=== PATIENT | male | born 1995 | race Caucasian/White ===

== ENCOUNTER 2024-02-17 16:41 | Emergency (ER) | payer SELFPAY ==
[2024-02-17] MEDS ORDERED: Sodium Chloride 0.9% 10 ML Syringe FLUSH PRN (17:04)
[2024-02-17] MEDS: Metoclopramide 10 MG/2 ML SDV IVPUSH ONE (17:14)
[2024-02-17] MEDS: Pantoprazole 40 MG Vial IVPUSH ONE (17:14)
[2024-02-17] MEDS: Sodium Chloride 0.9% 1,000 ML IV SCH ×2 (17:14→19:43)
[2024-02-17 17:30] LABS: BLOOD UREA NITROGEN,BUN 19 mg/dL (7-18); BUN/CREATININE RATIO 21.1 (9-20); CALCIUM 9.7 mg/dL (8.6-10.2); CARBON DIOXIDE,CO2 28 mmol/L (21-32); CHLORIDE,CL 101 mmol/L (100-110); CREATININE 0.9 mg/dL (0.70-1.30); EST CRCL DRUG DOSING (CG) 148.69 mL/min; ESTIMATED GFR 119 mL/min (>60); GLUCOSE RANDOM 90 mg/dL (80-116); SODIUM,NA 139 mmol/L (135-145)
[2024-02-17 17:34] LABS: INR 0.95 (1.00-1.24); PROTHROMBIN TIME 9.9 sec (9.0-11.1)
[2024-02-17] MEDS ORDERED: Naloxone 0.4 MG/ML SDV IVPUSH PRN ×3 (17:34→20:42)
[2024-02-17 17:35] LABS: BASOPHILS ABSOLUTE AUTO 0.1 x10-3/uL (0.0-0.3); BASOPHILS PERCENT AUTO 0.7 % (0.3-3.8); EOSINOPHILS ABSOLUTE AUTO 0.3 x10-3/uL (0.0-0.6); EOSINOPHILS PERCENT AUTO 3.1 % (0.1-6.8); HEMATOCRIT 43.4 % (38.3-50.1); HEMOGLOBIN 14.5 g/dL (12.9-17.7); LYMPHOCYTES ABSOLUTE AUTO 1.8 x10-3/uL (0.5-4.5); LYMPHOCYTES PERCENT AUTO 20.8 % (15.8-45.3); MEAN CORPUSCULAR HGB CONC 33.4 g/dL (28.7-35.3); MEAN CORPUSCULAR VOLUME 89.9 fL (80.8-98.7); MEAN PLATELET VOLUME 8.4 fL (6.7-11.0); MONOCYTES ABSOLUTE AUTO 0.7 x10-3/uL (0.0-1.2); MONOCYTES PERCENT AUTO 8.4 % (5.5-15.2); NEUTROPHILS ABSOLUTE AUTO 5.8 x10-3/uL (1.7-6.9); PLATELET COUNT,PLT 205 x10(3)uL (117-477); RED BLOOD CELL COUNT 4.83 x10(6)uL (3.90-5.90); RED CELL DISTRIBUTION WIDTH 15.2 % (12.4-15.0); WHITE BLOOD CELL COUNT,WBC 8.7 x10-3/uL (3.2-10.1)
[2024-02-17 17:38] LABS: A/G RATIO 0.9; ALANINE AMINOTRANSFERASE,ALT 50 U/L (12-36); ALBUMIN 3.7 g/dL (3.5-5.2); ALKALINE PHOSPHATASE 35 IU/L (56-112); ASPARTATE AMNIOTRANSFERASE,AST 21 IU/L (5-25); BILIRUBIN TOTAL 0.2 mg/dL (0.1-1.3); PROTEIN TOTAL,TP 7.8 g/dL (6.0-8.0)
[2024-02-17 17:39] LABS: BILIRUBIN,URINE NEGATIVE (NEGATIVE); GLUCOSE,URINE NORMAL (NORMAL); KETONES,URINE NEGATIVE (NEGATIVE); LEUKOCYTE ESTERASE,URINE NEGATIVE (NEGATIVE); NITRITE,URINE NEGATIVE (NEGATIVE); OCCULT BLOOD,URINE NEGATIVE (NEGATIVE); PROTEIN,URINE NEGATIVE (NEGATIVE); UROBILINOGEN,URINE NORMAL (NEGATIVE)
[2024-02-17] MEDS: HYDROmorphone 2 MG/ML SDV IVPUSH ONE ×3 (17:40→20:49)
[2024-02-17 17:41] LABS: APPEARANCE,URINE CLEAR (CLEAR); BACTERIA,URINE RARE (NS); COLOR,URINE YELLOW (YELLOW); RBC,URINE 0-5 (0-5); SQUAMOUS EPITHELIAL CELLS,UR OCCASIONAL (NS,R,O); WBC,URINE 0-5 (0-5)
[2024-02-17 17:46] LABS: C-REACTIVE PROTEIN < 0.50 mg/dL (<0.50); ETHANOL BLOOD MEDICAL < 0.03 % (<0.03)
[2024-02-17] MEDS: diphenhydrAMINE 50 MG/ML SDV IVPUSH ONE (18:00)
[2024-02-17] MEDS: Pantoprazole 80 MG in Sodium Chloride 0.9% 100 ML IV SCH (20:50)
== END 2024-02-17 21:45 | disposition other institution (70) ==
LOC: FB.ED 16:41
DX: K92.2 Gastrointestinal hemorrhage, unspecified (principal); K27.9 Peptic ulcer, site unspecified, unspecified as acute or chronic, without hemorrhage or perforation; Z79.899 Other long term (current) drug therapy; Z91.041 Radiographic dye allergy status; Z90.49 Acquired absence of other specified parts of digestive tract
CPT/HCPCS: 36415; 74176; 80053; 80307; 81001; 85025; 85610; 86140; 96361; 96374; 96375; 96376; 99285; C9113; J1170; J1200; J2765; J3490; J7030